=== PATIENT | male | born 1945 | race Caucasian/White ===

== ENCOUNTER 2022-02-23 16:27 | Inpatient (IN) | payer MEDICARE, OTHER ==
[~2022-02-23] VITALS: Ht 188 cm; Wt 95.7 kg
[~2022-02-23 16:27] MED LIST: KEFLEX250 MG PO
[2022-02-23 16:42] LABS: BASOPHIL 0.4 % (0-2); EOSINOPHIL 0 % (0-7); HCT 28.8 % (42.0-52.0); HGB 8.1 g/dl (13.2-18.0); LYMPHOCYTE 5.5 % (15-48); MCH 24.6 pg (25.0-31.0); MCHC 28.1 g/dL (32.0-36.0); MONOCYTE 2.7 % (0-12); MPV 10.8 fL (6.0-9.5); PLT 368 K/uL (150-400); RBC 3.29 M/uL (4.70-6.00); RDW 21.3 % (11.5-14.0); WBC 7.1 K/uL (4.0-10.5)
[2022-02-23 16:50] LABS: MCV 87.5 fL (78.0-100.0); NEUTROPHIL 90.7 % (41-80)
[2022-02-23 16:56] LABS: INR 2.47 (0.9-1.2); PROTHROMBIN TIME 25.8 SECONDS (11.8-13.4); PTT 45.7 SECONDS (24.4-34.7)
[2022-02-23 17:07] LABS: ALBUMIN 1.2 g/dL (3.4-5.0); BILIRUBIN - TOTAL 0.4 mg/dL (0.2-1.0); BUN/CREAT RATIO (CALC) 40.4 RATIO; CREATININE 0.57 mg/dL (0.67-1.17); MAGNESIUM 1.9 mg/dL (1.8-2.4); POTASSIUM 3.3 mmol/L (3.5-5.1); TOTAL PROTEIN 5.2 g/dL (6.4-8.2)
[2022-02-23 17:21] LABS: BILIRUBIN NEGATIVE (NEGATIVE); BLOOD 1+ Ery/uL (NEGATIVE); CLARITY CLOUDY (CLEAR); COLOR YELLOW (YELLOW); GLUCOSE (U) NORMAL (NORMAL); LEUKOCYTES TRACE Leu/uL (NEGATIVE); NITRITE NEGATIVE (NEGATIVE); PROTEIN 2+ mg/dL (NEGATIVE); SPECIFIC GRAVITY 1.025 (1.001-1.030)
[2022-02-23 17:32] LABS: AMORPHOUS URATES CRYSTALS MODERATE; BACTERIA 4+; MUCOUS MODERATE; URINARY WBC TNTC
[2022-02-23 17:46] LABS: CORONAVIRUS 2019 SARS-COV-2 NEGATIVE (NEGATIVE); INFLUENZA A NAA NEGATIVE (NEGATIVE)
[2022-02-23 18:12] LABS: LACTIC ACID 5.1 mmol/L (0.4-1.9)
[2022-02-24] MEDS ORDERED: FLORASTOR250 MG PO (00:17)
[2022-02-24] MEDS ORDERED: AUGMENTIN 500-1 EACH PO (00:18)
[2022-02-24] MEDS ORDERED: ATROVENT HFA12.9 GM INH (00:19)
[2022-02-24] MEDS ORDERED: MEDIHONEY44 ML TOP (00:22)
[2022-02-24] MEDS ORDERED: REMERON15 MG PO (00:23)
[2022-02-24] MEDS ORDERED: HYDROGEL TOP (00:23)
[2022-02-24] MEDS ORDERED: LIDOCAINE 5% P1 EACH TOP (00:24)
[2022-02-24] MEDS ORDERED: DIBUCAINE28 GM TOP (00:25)
[2022-02-24] MEDS ORDERED: NORCO 5-325 TA1 EACH PO (00:26)
[2022-02-24] MEDS ORDERED: AMIODARONE HCL200 MG PO (00:27)
[2022-02-24] MEDS ORDERED: VITAMIN D325 MC2 PO (00:28)
[2022-02-24] MEDS ORDERED: VITAMIN B-121000 MC1 PO (00:29)
[2022-02-24] MEDS ORDERED: LINZESS145 MCG PO (00:29)
[2022-02-24] MEDS ORDERED: LEXAPRO20 MG PO (00:30)
[2022-02-24] MEDS ORDERED: SINGULAIR10 MG PO (00:31)
[2022-02-24] MEDS ORDERED: NEURONTIN100 MG PO (00:32)
[2022-02-24] MEDS ORDERED: LAXATIVE SUPPOS10 MG PR (00:39)
[2022-02-24] MEDS ORDERED: PEPCID AC20 MG PO (00:41)
[2022-02-24] MEDS ORDERED: ELIQUIS5 MG PO (00:41)
[2022-02-24] MEDS ORDERED: TERAZOSIN 2 MG C2 MG PO (00:42)
[2022-02-24] MEDS ORDERED: ATORVASTATIN CA20 MG PO (00:42)
[2022-02-24] MEDS ORDERED: FEOSOL325 MG PO (00:43)
[2022-02-24] MEDS ORDERED: ATARAX25 MG PO (00:46)
[2022-02-24] MEDS ORDERED: MIRALAX17 GM PO (00:47)
[2022-02-24] MEDS ORDERED: MELATONIN5 M2 PO (00:47)
[2022-02-24] MEDS ORDERED: DULCOLAX5 MG PO (00:48)
[2022-02-24] MEDS ORDERED: CYCLOBENZAPRINE5 MG PO (00:49)
[2022-02-24] MEDS ORDERED: ACETAMINOPHEN325 MG PO (00:49)
[2022-02-24 05:37] LABS: BASOPHIL 0.7 % (0-2); EOSINOPHIL 0 % (0-7); HCT 29.4 % (42.0-52.0); HGB 8.6 g/dl (13.2-18.0); LYMPHOCYTE 2.7 % (15-48); MCH 24.6 pg (25.0-31.0); MCHC 29.3 g/dL (32.0-36.0); MCV 84.2 fL (78.0-100.0); MONOCYTE 1.5 % (0-12); MPV 10.8 fL (6.0-9.5); NEUTROPHIL 90.9 % (41-80); NRBC 0.3; PLT 434 K/uL (150-400); RBC 3.49 M/uL (4.70-6.00); RDW 21.8 % (11.5-14.0)
[2022-02-24 05:51] LABS: WBC 22.9 K/uL (4.0-10.5)
[2022-02-24 06:06] LABS: ALBUMIN 1.2 g/dL (3.4-5.0); ALKALINE PHOSHATASE 129 U/L (46-116); ALT 86 U/L (16-63); AST 131 U/L (15-37); BILIRUBIN - TOTAL 0.7 mg/dL (0.2-1.0); BUN 24 mg/dL (7-18); BUN/CREAT RATIO (CALC) 51.1 RATIO; CHLORIDE 109 mmol/L (98-107); CO2 (BICARBONATE) 26 mmol/L (21-32); CREATININE 0.47 mg/dL (0.67-1.17); GLOBULIN (CALCULATION) 4.4 g/dL; GLUCOSE 184 mg/dL (74-106); MAGNESIUM 1.9 mg/dL (1.8-2.4); POTASSIUM 3.2 mmol/L (3.5-5.1); TOTAL PROTEIN 5.6 g/dL (6.4-8.2)
[2022-02-24 06:11] LABS: C-REACTIVE PROTEIN > 18.00 mg/dL (<=0.90)
[2022-02-24 09:33] LABS: LACTIC ACID 3.1 mmol/L (0.4-1.9)
[2022-02-24 15:01] LABS: BUN/CREAT RATIO (CALC) 15.2 RATIO; CREATININE 1.05 mg/dL (0.67-1.17); POTASSIUM 3.8 mmol/L (3.5-5.1)
== END 2022-02-26 23:15 | disposition expired | DRG 871 ==
LOC: FER 16:27 → FICU 20:47
PROVIDERS: Emergency Medicine; Family Medicine; Nurse Practitioner; ADMIT Internal Medicine
PROC: 3E053XZ Introduction of Vasopressor into Peripheral Artery, Percutaneous Approach (ICD-10-PCS; principal; 2022-02-23)
PROC: 3E03329 Introduction of Other Anti-infective into Peripheral Vein, Percutaneous Approach (ICD-10-PCS; 2022-02-23)
PROC: 5A1935Z Respiratory Ventilation, Less than 24 Consecutive Hours (ICD-10-PCS; 2022-02-23)
DX: A41.9 Sepsis, unspecified organism (principal); J69.0 Pneumonitis due to inhalation of food and vomit; R65.21 Severe sepsis with septic shock; J96.01 Acute respiratory failure with hypoxia; J96.02 Acute respiratory failure with hypercapnia; J18.9 Pneumonia, unspecified organism; N30.01 Acute cystitis with hematuria; G82.20 Paraplegia, unspecified; Z66 Do not resuscitate; Z51.5 Encounter for palliative care; Y95 Nosocomial condition; I69.391 Dysphagia following cerebral infarction; R13.10 Dysphagia, unspecified; I48.91 Unspecified atrial fibrillation; E87.6 Hypokalemia; R73.9 Hyperglycemia, unspecified; N40.0 Benign prostatic hyperplasia without lower urinary tract symptoms; R94.31 Abnormal electrocardiogram [ECG] [EKG]; I10 Essential (primary) hypertension; E78.5 Hyperlipidemia, unspecified; I25.10 Atherosclerotic heart disease of native coronary artery without angina pectoris; Z96.653 Presence of artificial knee joint, bilateral; Z98.890 Other specified postprocedural states; Z80.2 Family history of malignant neoplasm of other respiratory and intrathoracic organs; Z90.79 Acquired absence of other genital organ(s); Z85.828 Personal history of other malignant neoplasm of skin
CPT/HCPCS: 36415; 36600; 70450; 71045; 71250; 80048; 80053; 81001; 82803; 82962; 83605; 83735; 83880; 84100; 84145; 84443; 84484; 85025; 85610; 85730; 86140; 87040; 87076; 87088; 87186; 92950; 93005; 94002; 94640; 96365; 96366; 96368; 96375; C9113; J1650; J2020; J2060; J2270; J2543; J2704; J3370; J3475; J3480; J3490; J7030; J7050; P9047; U0002